=== PATIENT | female | born 1980 | race African-American/Black ===

== ENCOUNTER 2025-01-11 11:56 | Emergency (ER) | payer BC ==
[2025-01-11] MEDS ORDERED: Ketorolac Tromethamine 30 MG (1 mL) VIAL ONE (12:45)
[2025-01-11] MEDS ORDERED: HYDROcodone/Acetaminophen 10/325 mg Tablet ONE (12:45)
== END 2025-01-11 12:52 | disposition home or self-care (01) ==
LOC: CSHERS 11:56
DX: M25.512 Pain in left shoulder (principal); Z87.891 Personal history of nicotine dependence
CPT/HCPCS: 99283; J1885